=== PATIENT | male | born 1965 | race Caucasian/White ===

== ENCOUNTER 2017-07-30 06:45 | Observation (INO) | payer MEDICAID ==
[~2017-07-30] VITALS: Ht 162.6 cm; Wt 86.0 kg
[2017-07-30] MEDS ORDERED: morphine 4 MG/ML VIAL IV STA (07:10)
[2017-07-30] MEDS ORDERED: SOD CHLORIDE 0.9% 500 ML IV STA (07:10)
[2017-07-30] MEDS ORDERED: ONDANSETRON 4 MG INJ IV STA (07:10)
--- NOTE | 2017-07-30 07:13 | ERD ---
ER Documentation Chief Complaint Date/Time DATE: 07/30/17 TIME: 07:11 Chief Complaint Complains of abdominal pain with vomiting that radiates to the back HPI Patient is a 52-year-old male who presents with sudden onset, constant, moderate epigastric and right upper quadrant pain radiating to the right flank for 2 days. He states that the pain began after eating a fish taco. He reports one episode of vomiting yesterday. He reports constipation. His last bowel movement was yesterday. He reports having mild subjective fever yesterday morning. He denies chest pain, shortness of breath. ROS All systems reviewed and are negative except as per history of present illness. Medications Home Meds No Active Prescriptions or Reported Meds Allergies Allergies: Coded Allergies: No Known Allergy (Unverified , 07/30/17) PMhx/Soc Past medical history: None Past surgical history: Anal surgery Social history: Drinks occasional alcohol, no recent heavy alcohol use. No tobacco or illicit drugs. FmHx Family History: No coronary disease, No diabetes Physical Exam Vitals Vital Signs Date Time Temp Pulse Resp B/P Pulse Ox O2 Delivery O2 Flow Rate FiO2 07/30/17 06:48 98.6 79 20 129/82 98 Physical Exam Const: Alert, no acute distress Head: Atraumatic Eyes: Normal Conjunctiva, No pallor, no icterus ENT: Normal External Ears, Nose and Mouth. Mucous membranes moist Neck: Full range of motion..~ No meningismus. Resp: Clear to auscultation bilaterally, No wheezes, no rales Cardio: Regular rate and rhythm, no murmurs Abd: Soft, Mild distention, tenderness in the epigastrium and right upper quadrant without rebound. No lower abdominal tenderness. Skin: No petechiae or rashes Back: No midline or flank tenderness, No CVA tenderness Ext: No cyanosis, or edema Neur: Awake and alert Psych: Normal Mood and Affect Result Diagram: 07/30/1715 07/30/17714 Results 24 hrs Laboratory Tests Test 07/30/17 07:15 07/30/17 08:55 White Blood Count 19.710^3/ul Red Blood Count 5.5010^6/ul Hemoglobin 16.7g/dl Hematocrit 47.0% Mean Corpuscular Volume 85.5fl Mean Corpuscular Hemoglobin 30.4pg Mean Corpuscular Hemoglobin Concent 35.5g/dl Red Cell Distribution Width 14.1% Platelet Count 49679^3/UL Mean Platelet Volume 10.8fl Neutrophils % 84.1% Lymphocytes % 8.9% Monocytes % 5.4% Eosinophils % 0.7% Basophils % 0.3% Nucleated Red Blood Cells % 0.0/100WBC Neutrophils # 16.510^3/ul Lymphocytes # 1.810^3/ul Monocytes # 1.110^3/ul Eosinophils # 0.110^3/ul Basophils # 0.110^3/ul Nucleated Red Blood Cells # 0.010^3/ul Sodium Level 137mmol/L Potassium Level 3.9mmol/L Chloride Level 107mmol/L Carbon Dioxide Level 23mmol/L Anion Gap 11 Blood Urea Nitrogen 16mg/dl Creatinine 0.83mg/dl Glucose Level 131mg/dl Calcium Level 8.9mg/dl Total Bilirubin 1.1mg/dl Direct Bilirubin 0.00mg/dl Indirect Bilirubin 1.1mg/dl Aspartate Amino Transf (AST/SGOT) 40IU/L Alanine Aminotransferase (ALT/SGPT) 41IU/L Alkaline Phosphatase 112IU/L Total Protein 8.0g/dl Albumin 3.8g/dl Globulin 4.20g/dl Albumin/Globulin Ratio 0.90 Lipase 355U/L Urine Color YELLOW Urine Clarity CLEAR Urine pH 5.0 Urine Specific [place] 1.023 Urine Ketones NEGATIVEmg/dL Urine Nitrite NEGATIVEmg/dL Urine Bilirubin NEGATIVEmg/dL Urine Urobilinogen 1+mg/dL Urine Leukocyte Esterase NEGATIVELeu/ul Urine Hemoglobin NEGATIVEmg/dL Urine Glucose NEGATIVEmg/dL Urine Total Protein NEGATIVEmg/dl Current Medications Medications (Trade) Dose Ordered Sig/Chu Route PRN Reason Start Time Stop Time Status Last Admin Dose Admin Sodium Chloride (NS) 500 ml @ 500 mls/hr Q1H STAT IV 07/30/17 07:10 07/30/17 08:09 DC 07/30/17 07:26 Morphine Sulfate (morphine) 4 mg ONCE STAT IV 07/30/17 07:10 07/30/17 07:11 DC 07/30/17 07:26 Ondansetron HCl (Zofran Inj) 4 mg ONCE STAT IV 07/30/17 07:10 07/30/17 07:11 DC 07/30/17 07:26 IV Flush 10 ml 10 ml STK-MED ONCE .ROUTE 07/30/17 09:31 07/30/17 09:32 DC Sodium Chloride (NS) 100 ml @ ud STK-MED ONCE .ROUTE 07/30/17 09:31 07/30/17 09:32 DC Iohexol (Omnipaque 300mg/ ml) 150 ml STK-MED ONCE .ROUTE 07/30/17 09:31 07/30/17 09:32 DC Procedures/MDM EKG read by me: Time 716, rate 72 Rhythm: Normal sinus [place]: Normal Intervals: Normal ST-T waves: no ischemic changes Ectopy: No Q-waves: No Impression: No evidence of ischemia or arrhythmia MDM: Patient is a 52-year-old male who presents with acute epigastric and right upper quadrant pain. He has had a few episodes of vomiting. He is found to have pancreatitis on CT scan and has significant leukocytosis. There are no signs of sepsis. He is found to have cholelithiasis without evidence for choledocholithiasis or cholecystitis. There is no report of recent alcohol use or identifiable medications that would account for his acute pancreatitis. His lipase is not 3 times the upper limit of normal, but CT does show signs of pancreatitis. I cannot exclude the possibility of gallstone pancreatitis which may be transient. Given risk for worsening or recurrence in the patient's ongoing pain and leukocytosis, I will admit the patient for observation and possible surgical consult. Departure Diagnosis: Primary Impression: Pancreatitis Chronicity: acute Pancreatitis type: unspecified pancreatitis type Acute pancreatitis complication: no infection or necrosis Qualified Code: K85.90 - Acute pancreatitis without infection or necrosis, unspecified pancreatitis type Additional Impression: Cholelithiasis Cholelithiasis location: gallbladder Cholecystitis presence: without cholecystitis Biliary obstruction: without biliary obstruction Qualified Code : K80.20 - Calculus of gallbladder without cholecystitis without obstruction Condition: JULISA Ryan MD Jul 30, 2017 07:13
[2017-07-30 07:44] LABS: BASOPHIL # 0.1 10^3/ul (0.0-0.1); BASOPHILS % 0.3 % (0.0-2.0); EOSINOPHILS # 0.1 10^3/ul (0.0-0.5); EOSINOPHILS % 0.7 % (0.0-7.0); HEMOGLOBIN 16.7 g/dl (14.0-18.0); LYMPHOCYTES # 1.8 10^3/ul (0.8-2.9); LYMPHOCYTES % 8.9 % (15.0-51.0); MEAN CORPUSCULAR HEMOGLOBIN 30.4 pg (29.0-33.0); MEAN CORPUSCULAR HGB CONC 35.5 g/dl (32.0-37.0); MEAN CORPUSCULAR VOLUME 85.5 fl (82.0-101.0); MEAN PLATELET VOLUME 10.8 fl (7.4-10.4); MONOCYTE # 1.1 10^3/ul (0.3-0.9); MONOCYTES % 5.4 % (0.0-11.0); NEUTROPHIL # 16.5 10^3/ul (1.6-7.5); NEUTROPHILS % 84.1 % (39.0-77.0); PLATELET COUNT 308 10^3/UL (140-415); RED CELL DISTRIBUTION WIDTH 14.1 % (11.5-14.5); WHITE BLOOD COUNT 19.7 10^3/ul (4.8-10.8)
[2017-07-30 08:25] LABS: ALBUMIN 3.8 g/dl (3.3-4.9); ALBUMIN/GLOBULIN RATIO 0.9; BILIRUBIN,INDIRECT 1.1 mg/dl (0-1.1); BILIRUBIN,TOTAL 1.1 mg/dl (0.2-1.3); CALCIUM 8.9 mg/dl (8.4-10.2); CREATININE 0.83 mg/dl (0.61-1.24); POTASSIUM 3.9 mmol/L (3.5-5.1)
--- NOTE | 2017-07-30 08:46 | RADRPT ---
PROCEDURE: US Abdomen. CLINICAL INDICATION: abdominal pain TECHNIQUE: Multiple real-time images were acquired of the patient's right upper quadrant abdomen a nd retroperitoneum utilizing a high resolution transducer. COMPARISON: None FINDINGS: The liver demonstrates increased echogenicity. The liver is normal in size and no focal solid lesio ns are seen. The liver measures 18.1 cm in length. The portal vein is patent with normal direction o f flow. No intrahepatic biliary dilatation is seen. Multiple small calcified gallstones are identified within the gallbladder. There is no pericholecys tic fluid or gallbladder wall thickening. The common bile duct measures 5 mm in maximal dimension. The pancreas is not well seen due to overlying bowel gas. No free fluid is identified. The right kidney is normal in size, and demonstrate normal echogenicity and cortical thickness. The right kidney measures 10.2 cm in long dimension. There is no evidence of hydronephrosis. There are no kidney stones. The proximal IVC and aorta were not seen due to overlying bowel gas. RPTAT: AA IMPRESSION: Cholelithiasis. Fatty infiltration of the liver. .Ashutosh Mendenhall MD, MD Date Time Electronically viewed and signed by .Ashutosh Mendenhall MD, on 07/30/2017 08:46 .S/
[2017-07-30 09:12] LABS: ADD UMIC NO; UR ASCORBIC ACID NEGATIVE (NEGATIVE); UR BILIRUBIN (Dip) NEGATIVE (NEGATIVE); UR BLOOD (Dip) NEGATIVE (NEGATIVE); UR CLARITY CLEAR (CLEAR); UR COLOR YELLOW (YELLOW); UR GLUCOSE (Dip) NEGATIVE (NEGATIVE); UR KETONES (Dip) NEGATIVE (NEGATIVE); UR LEUKOCYTE ESTERASE (Dip) NEGATIVE Leu/ul (NEGATIVE); UR NITRITE (Dip) NEGATIVE (NEGATIVE); UR SPECIFIC GRAVITY (Dip) 1.023 (1.003-1.030); UR TOTAL PROTEIN (Dip) NEGATIVE (NEGATIVE); UR UROBILINOGEN (Dip) 1+ mg/dL (NEGATIVE)
--- NOTE | 2017-07-30 09:25 | RADRPT ---
PROCEDURE: ABDOMINAL RADIOGRAPH CLINICAL INDICATION: Abdominal pain. TECHNIQUE: AP abdomen x-ray. COMPARISON: None. FINDINGS: The bowel gas pattern is normal. There is no evidence of obstruction. There are no abnormal calcific ations overlying the urinary tracts. The osseus structures are unremarkable. IMPRESSION: Unremarkable abdomen radiograph. RPTAT: HMZ .Onel León MD, MD Date Time Electronically viewed and signed by .Onel León MD, on 07/30/2017 09:25 .Z/
[2017-07-30] MEDS ORDERED: SOD CHLORIDE 0.9% 100 ML ONE (09:31)
[2017-07-30] MEDS ORDERED: IOHEXOL 300MG/ML 150 ML BTL ONE (09:31)
--- NOTE | 2017-07-30 09:57 | RADRPT ---
PROCEDURE: CT Abdomen and Pelvis with contrast. CLINICAL INDICATION: Abdominal pain. TECHNIQUE: CT scan of the abdomen and pelvis with and without contrast was performed on a multidet perri high-resolution CT scanner. The patient was scanned following the uncomplicated intravenous a dministration of 100 cc of Omnipaque 300. Coronal and sagittal reformatted images were obtained fro m the axial source images. Images were reviewed on a high-resolution PACS workstation. The followin g dose reduction techniques were used: Automated exposure control, adjustment of the mA and/or kV ac cording to patient size and use of iterative reconstruction technique. The total exam CTDI equals 17 .0 mGy and the total exam DLP equals 1100 mGy-cm. COMPARISON: None. FINDINGS: CT abdomen: There is minimal bibasilar atelectasis. The heart size is normal. No pericardial effusion identified. The liver demonstrates normal size and density. No liver mass identified. The gallbladder is unremarkable. There is no intrahepatic or extrahepatic biliary dilatation. The spleen is normal in size. No focal splenic abnormality identified. No gross abnormality of the stomach is identified. There is inflammatory change around the head and body of the pancreas suggesting pancreatitis. The adrenal glands appear normal. Benign-appearing bilateral renal cysts measure up to 0.2 cm on the left and 0.8 cm on the right. The kidneys are unremarkable. There is no evidence of renal mass, renal calculi or hydronephrosis. The aorta is of normal caliber. No adenopathy identified. The bowel and mesentery are unremarkable. The appendix is visualized and appears normal. CT pelvis: The pelvic organs are normal. The pelvic sidewalls and inguinal regions are clear. The sigmoid colon and rectum are unremarkable. No adenopathy, free fluid or inflammatory change identified. The osseous structures are remarkable for mild degenerative spondylosis of the spine. No osteolytic or osteoblastic lesion is detected. There is a 2.5 cm fat containing right inguinal hernia. IMPRESSION: 1. Inflammatory change around the head and body of pancreas suggesting pancreatitis. No evidence of free fluid or abscess. 2. Benign-appearing bilateral renal cysts measuring up to 2.2 cm. 3. 2.5 cm fat containing right inguinal hernia. RPTAT: QQ .Maury Esquivel MD, MD Date Time Electronically viewed and signed by .Maury Esquievl MD, on 07/30/2017 09:57 .M/
[2017-07-30] MEDS ORDERED: ONDANSETRON 4 MG INJ IV PRN ×2 (13:00→14:00)
[2017-07-30] MEDS ORDERED: ACETAMINOPHEN 325 MG TAB PO PRN (13:00)
[2017-07-30] MEDS ORDERED: NACL 0.9% 3 ML SYG IV SCH (14:00)
[2017-07-30] MEDS ORDERED: HYDROmorphONE 1 MG/ML SYG IV PRN (14:00)
[2017-07-30 14:17] VITALS: BP 110/76; RESP 18
--- NOTE | 2017-07-30 14:17 | HP ---
Date/Time of Note Date/Time of Note DATE: 07/30/17 TIME: 13:47 Assessment/Plan VTE Prophylaxis VTE Prophylaxis Intervention: SCD's Assessment/Plan Assessment/Plan 1. Acute pancreatitis - Seen on CT scan of abdomen showed inflammatory change around the head and body of pancreas suggesting pancreatitis. No evidence of free fluid or abscess - Lipase 355 - Will keep NPO and pain control with Morphine. IVF NSS - MRCP ordered to rule out choledocholithiasis as cause of pancreatitis - Will check lipid panel - GI consulted and awaiting recommendations - Will consult Surgery for evaluation as well. - Will start on Cipro/Flayl for now given WBC are 19K 2. Leukocytosis secondary to #1 - will continue to monitor 3. Diet - NPO 4. GI ppx - Pepcid 5. DVT ppx - SCD since ambulating 6. Code status - Full code 7. Disposition - Will admit to med/surg >35 minutes was spent with patient at time of admission. All labs and imaging reviewed personally. All questions answered. HPI/ROS Admit Date/Time Admit Date/Time 07/30/17 Hx of Present Illness 52 yo M with no significant PMH presents to ED c/o worsening abdominal pain that radiates to the back since Monday. Patient states he was eating fish tacos when the abdominal pain began. States pain is 8/10, epigastric area radiating to back and bilateral lower quadrants, nothing makes it better, and worse with eating. Patient states he was experiencing nausea with one episode of vomiting yesterday but has since resolved. He has only been able to tolerate water over the past day prior to coming to ED. Patient states he does experiencing some shortness of breath due to the back pain and abdominal pain. Denies any fevers, chills, headache, dizziness, palpitations,constipation or diarrhea. Denies any excessive alcohol use. ROS All 13 systems reviewed and pertinent positives as per HPI. All others reviewed and negative Constitutional: nausea, No chills, No diaphoresis, No fatigue, No febrile Eyes: no complaints ENT: no complaints, No discharge, No sore throat Respiratory: shortness of breath, No cough, No sputum, No wheezing Cardiovascular: No chest pain, No edema, No lightheadedness, No palpitations Gastrointestinal: nausea, pain (epigastric radiating to back), vomiting, No constipation, No diarrhea Genitourinary: no complaints Musculoskeletal: back pain Skin: no complaints Neurologic: no complaints Endocrine: no complaints Lymphatic: no complaints Psychological: no complaints Immunologic: no complaints PMH/Family/Social Past Medical History Medical History: no pertinent history Past Surgical History Past Surgical Hx: no surgical history Family History Significant Family History: no pertinent family hx Social History Alcohol Use: none Smoking Status: Never smoker Drug Use: none Exam/Review of Systems Vital Signs Vitals Vital Signs Date Time Temp Pulse Resp B/P Pulse Ox O2 Delivery O2 Flow Rate FiO2 07/30/17 06:48 98.6 79 20 129/82 98 Exam Constitutional: alert, oriented, well developed, No distress Psych: nl mood/affect Head: atraumatic, normocephalic Eyes: EOMI, PERRL ENMT: nl external ears & nose, nl lips & teeth Neck: non-tender, supple Respiratory: clear to auscultation, No crackles/rales, No diminished breath sounds, No wheezing Cardiovascular: regular rate and rhythm, No murmurs/extra sounds, No systolic murmur Gastrointestinal: nl liver, spleen, soft, No distended, No rebound or guarding, No tender Musculoskeletal: nl extremities to inspection Extremities: normal pulses, No cyanosis, No edema Neurological: [employer] II-XII intact, nl mental status Skin: nl turgor Lymph: nl lymph nodes Labs Result Diagram: 07/30/1771407/30/17714 Medications Medications No home medications. Procedures Procedures PROCEDURE: CT Abdomen and Pelvis with contrast. CLINICAL INDICATION: Abdominal pain. TECHNIQUE: CT scan of the abdomen and pelvis with and without contrast was performed on a multidetector high-resolution CT scanner. The patient was scanned following the uncomplicated intravenous administration of 100 cc of Omnipaque 300. Coronal and sagittal reformatted images were obtained from the axial source images. Images were reviewed on a high-resolution PACS workstation. The following dose reduction techniques were used: Automated exposure control, adjustment of the mA and/or kV according to patient size and use of iterative reconstruction technique. The total exam CTDI equals 17.0 mGy and the total exam DLP equals 1100 mGy-cm. COMPARISON: None. FINDINGS: CT abdomen: There is minimal bibasilar atelectasis. The heart size is normal. No pericardial effusion identified. The liver demonstrates normal size and density. No liver mass identified. The gallbladder is unremarkable. There is no intrahepatic or extrahepatic biliary dilatation. The spleen is normal in size. No focal splenic abnormality identified. No gross abnormality of the stomach is identified. There is inflammatory change around the head and body of the pancreas suggesting pancreatitis. The adrenal glands appear normal. Benign-appearing bilateral renal cysts measure up to 0.2 cm on the left and 0.8 cm on the right. The kidneys are unremarkable. There is no evidence of renal mass, renal calculi or hydronephrosis. The aorta is of normal caliber. No adenopathy identified. The bowel and mesentery are unremarkable. The appendix is visualized and appears normal. CT pelvis: The pelvic organs are normal. The pelvic sidewalls and inguinal regions are clear. The sigmoid colon and rectum are unremarkable. No adenopathy, free fluid or inflammatory change identified. The osseous structures are remarkable for mild degenerative spondylosis of the spine. No osteolytic or osteoblastic lesion is detected. There is a 2.5 cm fat containing right inguinal hernia. IMPRESSION: 1. Inflammatory change around the head and body of pancreas suggesting pancreatitis. No evidence of free fluid or abscess. 2. Benign-appearing bilateral renal cysts measuring up to 2.2 cm. 3. 2.5 cm fat containing right inguinal hernia. PROCEDURE: ABDOMINAL RADIOGRAPH CLINICAL INDICATION: Abdominal pain. TECHNIQUE: AP abdomen x-ray. COMPARISON: None. FINDINGS: The bowel gas pattern is normal. There is no evidence of obstruction. There are no abnormal calcifications overlying the urinary tracts. The osseus structures are unremarkable. IMPRESSION: Unremarkable abdomen radiograph. PROCEDURE: US Abdomen. CLINICAL INDICATION: abdominal pain TECHNIQUE: Multiple real-time images were acquired of the patient's right upper quadrant abdomen and retroperitoneum utilizing a high resolution transducer. COMPARISON: None FINDINGS: The liver demonstrates increased echogenicity. The liver is normal in size and no focal solid lesions are seen. The liver measures 18.1 cm in length. The portal vein is patent with normal direction of flow. No intrahepatic biliary dilatation is seen. Multiple small calcified gallstones are identified within the gallbladder. There is no pericholecystic fluid or gallbladder wall thickening. The common bile duct measures 5 mm in maximal dimension. The pancreas is not well seen due to overlying bowel gas. No free fluid is identified. The right kidney is normal in size, and demonstrate normal echogenicity and cortical thickness. The right kidney measures 10.2 cm in long dimension. There is no evidence of hydronephrosis. There are no kidney stones. The proximal IVC and aorta were not seen due to overlying bowel gas. RPTAT: AA IMPRESSION: Cholelithiasis. Fatty infiltration of the liver. JERICA OVERTON MD Jul 30, 2017 13:58
[2017-07-30] MEDS: morphine 2 MG INJ IV PRN (14:37)
[2017-07-30] MEDS: SOD CHLORIDE 0.9% 1,000 ML IV SCH ×2 (14:40→23:36)
[2017-07-30] MEDS: CIPROFLOXACIN 400MG/D5W 200 ML IVPB SCH ×2 (14:42→20:36)
[2017-07-30 15:47] VITALS: Ht 162.6 cm; Wt 86.0 kg
--- NOTE | 2017-07-30 16:10 | CONS ---
Date/Time of Note Date/Time of Note DATE: 07/30/17 TIME: 16:03 Assessment/Plan Assessment/Plan Additional Assessment/Plan Assessment: Acute pancreatitis/etiology unclear No history of alcohol abuse Cholelithiasis/normal common bile duct/normal liver function tests Morbid obesity History of anorectal fistula repaired surgically many years ago Plan: Continue present management with n.p.o., pain management, antibiotics MRI/MRCP to further rule out choledocholithiasis Consider elective cholecystectomy Weight loss program Consultation Date/Type/Reason Admit Date/Time 07/30/17 Date of Consultation: Jul 30, 2017 Type of Consultation: GI Reason for Consultation Pancreatitis Hx of Present Illness 42-year-old male presents to emergency room with 3 days of persistent abdominal pain epigastric radiating towards the back, severe enough to interfere with his daily diet. Associated with nausea and vomiting. No overt gastrointestinal bleeding. No fever, chills or diaphoresis. The patient has never had pain like this before. Upon evaluation in the emergency room he is noticed to have an elevated lipase and imaging shows cholelithiasis with normal common bile duct. The patient denies alcohol intake with the exception of major holidays such as Rg and even then in small amounts. He has never had previous episodes of gastrointestinal disease with the exception of rectal fistula that was treated surgically many years prior. The patient has not had screening colonoscopy is recommended at age 48. At this point the patient is comfortable after receiving opiate pain management. Review of Systems: Gastrointestinal and liver: [As noted in HPI] [positive for: Abdominal pain] [ Negative for: Anorexia, dysphagia, odynophagia, pyrosis, regurgitation, nausea, vomiting, early satiety, bloating, food intolerance, diarrhea, constipation, change in bowel habits, laxative use, hematemesis, melena, hematochezia, and rectal symptoms, incontinence, jaundice.] Eyes: no complaints ENT: no complaints, No discharge, No sore throat Respiratory: shortness of breath, No cough, No sputum, No wheezing Cardiovascular: No chest pain, No edema, No lightheadedness, No palpitations Genitourinary: no complaints Musculoskeletal: back pain Skin: no complaints Neurologic: no complaints Lymphatic: no complaints Psychological: nl mood/affect Immunologic: no complaints Past Medical History Medical History: no pertinent history, other Past Surgical History Past Surgical Hx: other (And a rectal fistula treated surgically many years prior) Family History Significant Family History: no pertinent family hx Social History Alcohol Use: occasionally Smoking Status: Never smoker Drug Use: none Exam/Review of Systems Vital Signs Vitals Vital Signs Date Time Temp Pulse Resp B/P Pulse Ox O2 Delivery O2 Flow Rate FiO2 07/30/17 14:17 98.9 80 18 110/76 100 Exam PHYSICAL EXAMINATION: GENERAL: Well developed, well nourished, morbidly obese, alert & oriented x 3, in no acute distress SKIN: No lesions, no stigmata chronic liver disease, no evidence of bleeding diathesis LYMPHATIC: No palpable lymphadenopathy. HEAD: Normocephalic, atraumatic, no tenderness. EYES: Pupils equal reactive to light and accommodation, full extraocular movements, sclera clear, non-icteric, no discharge. EARS/NOSE AND THROAT: Ears normal, nose normal, oropharynx normal, oral membranes well hydrated without lesions. NECK: Supple, no masses, thyroid normal, JVP within normal limits, carotids normal without bruits. CHEST: Inspection within normal limits. CARDIOVASCULAR: Heart: Regular rate and rhythm, no murmurs, gallops or rubs. Peripheral pulses present within normal limits, no cyanosis, clubbing or edemas. No pulsatile abdominal mass RESPIRATORY: Lungs clear to auscultation and percussion, no wheezing, no rubs GASTROINTESTINAL AND LIVER: Abdomen: Soft, moderate epigastric tenderness, moderately distended, no hernias, no masses, no organomegaly, no ascites, no guarding, no rebound tenderness, normoactive bowel sounds. Rectal: Deferred. GENITOURINARY: [Male genitalia within normal limits.] EXTREMITIES: No cyanosis, clubbing or edema. Results Result Diagram: 07/30/17 0715 07/30/17 0715 Results 24 hrs Laboratory Tests Test 07/30/17 07:15 07/30/17 08:55 White Blood Count 19.7 H Red Blood Count 5.50 Hemoglobin 16.7 Hematocrit 47.0 Mean Corpuscular Volume 85.5 Mean Corpuscular Hemoglobin 30.4 Mean Corpuscular Hemoglobin Concent 35.5 Red Cell Distribution Width 14.1 Platelet Count 308 Mean Platelet Volume 10.8 H Neutrophils % 84.1 H Lymphocytes % 8.9 L Monocytes % 5.4 Eosinophils % 0.7 Basophils % 0.3 Nucleated Red Blood Cells % 0.0 Neutrophils # 16.5 H Lymphocytes # 1.8 Monocytes # 1.1 H Eosinophils # 0.1 Basophils # 0.1 Nucleated Red Blood Cells # 0.0 Sodium Level 137 Potassium Level 3.9 Chloride Level 107 Carbon Dioxide Level 23 Anion Gap 11 Blood Urea Nitrogen 16 Creatinine 0.83 Glucose Level 131 Calcium Level 8.9 Total Bilirubin 1.1 Direct Bilirubin 0.00 Indirect Bilirubin 1.1 Aspartate Amino Transf (AST/SGOT) 40 Alanine Aminotransferase (ALT/SGPT) 41 Alkaline Phosphatase 112 Total Protein 8.0 Albumin 3.8 Globulin 4.20 H Albumin/Globulin Ratio 0.90 Lipase 355 H Urine Color YELLOW Urine Clarity CLEAR Urine pH 5.0 Urine Specific [place] 1.023 Urine Ketones NEGATIVE Urine Nitrite NEGATIVE Urine Bilirubin NEGATIVE Urine Urobilinogen 1+ H Urine Leukocyte Esterase NEGATIVE Urine Hemoglobin NEGATIVE Urine Glucose NEGATIVE Urine Total Protein NEGATIVE Medications Medications Current Medications Sodium Chloride (NS) 1,000 ml @ 100 mls/hr Q10H IV Last administered on 14:40; Admin Dose 100 MLS/HR; Start 07/30/17 at 13:36 Ondansetron HCl (Zofran Inj) 4 mg Q6H PRN IV NAUSEA AND/OR VOMITING; Start 07/30/17 at 14:00 Morphine Sulfate (morphine) 2 mg Q4H PRN IV SEVERE PAIN LEVEL 7-10 Last administered on 07/30/17 14:37; Admin Dose 2 MG; Start 07/30/17 at 14:00 Hydromorphone HCl (Dilaudid) 0.5 mg Q4H PRN IV SEVERE PAIN LEVEL 7-10; Start 07/30/17 at 14:00 Famotidine 20 mg 20 mg Q12 IV ; Start 07/30/17 at 15:30 Metronidazole 100 ml @ 100 mls/hr Q8 IVPB ; Start 07/30/17 at 14:30 Ciprofloxacin/ Dextrose (Cipro Ivpb) 200 ml @ 200 mls/hr Q12 IVPB Last administered on 07/30/17 14:42; Admin Dose 200 MLS/HR; Start 07/30/17 at 14:30 Copies To: CC: RADHA GAY MD, MORDO MD Jul 30, 2017 16:10
[2017-07-30] MEDS: FAMOTIDINE 20 MG INJ IV SCH ×2 (16:22→20:35)
[2017-07-30] MEDS: metroNIDAZOLE 500 MG/NS (PMX) 100 ML IVPB SCH ×2 (16:22→22:13)
--- NOTE | 2017-07-30 16:29 | CONS ---
Date/Time of Note Date/Time of Note DATE: 07/30/17 TIME: 16:27 Assessment/Plan Assessment/Plan Chief Complaint/Hosp Course 1. Pancreatitis likely 2/2 gallstones - patient denies heavy drinking -npo -ivf -abx -pain management 2. Cholelithiasis without cholecystitis: -eventual lap marjan -MRCP/ERCP per gi 3. Leukocytosis: 2/2 #1; no fevers -as above 4. Right inguinal hernia; reducible, no pain -eventual repair can be done outpatient -close monitoring -weight reduction 5. Hepatic steatosis -weight loss encouraged -medical management and follow up outpatient 6. Severe obesity: -weight loss highly encouraged -diet and exercise optimization Thank you. Patient seen and examined in collaboration with Dr. Sergio Unger. Problems: Consultation Date/Type/Reason Admit Date/Time 07/30/17 Date of Consultation: Jul 30, 2017 Type of Consultation: Surgical Reason for Consultation pancreatitis Referring Provider: JERICA OVERTON MD Hx of Present Illness Chase Carias is a 52 yo man who presents to the ED with a 3 day complaint of abdominal pain described as squeezing and hard. Pain radiates to his back. Associated symptoms include a one time episode of vomiting, nonbloody emesis, as well as chills, He denies fevers, nausea with further vomiting, diarrhea, dysuria, chest pain, palpitations. CT abdomen showed radiologic evidence of pancreatitis. Ultrasound also showed cholelithiasis. General surgery consult was asked to evaluate. Eyes: no complaints ENT: no complaints, No discharge, No sore throat Respiratory: shortness of breath, No cough, No sputum, No wheezing Cardiovascular: No chest pain, No edema, No lightheadedness, No palpitations Genitourinary: no complaints Musculoskeletal: back pain Skin: no complaints Neurologic: no complaints Lymphatic: no complaints Psychological: nl mood/affect Immunologic: no complaints Past Medical History fatty liver right inguinal hernia severe obesity Medical History: other Past Surgical History rectal surgery Past Surgical Hx: other (And a rectal fistula treated surgically many years prior) Family History Significant Family History: no pertinent family hx Social History Alcohol Use: occasionally Smoking Status: Never smoker Drug Use: none Exam/Review of Systems Vital Signs Vitals Vital Signs Date Time Temp Pulse Resp B/P Pulse Ox O2 Delivery O2 Flow Rate FiO2 07/30/17 14:17 98.9 80 18 110/76 100 Exam Constitutional: alert, oriented Psych: nl mood/affect Head: atraumatic, normocephalic Eyes: nl lids, nl sclera ENMT: mucosa pink and moist, nl nasal mucosa & septum Neck: non-tender, supple Respiratory: clear to auscultation, normal air movement Cardiovascular: regular rate and rhythm Gastrointestinal: distended (min), soft, tender (min) Genitourinary - Male: other (right inguinal hernia -reducible no pain) Musculoskeletal: nl extremities to inspection, nl gait and stance Extremities: normal pulses Neurological: nl mental status, nl speech, nl strength Skin: rash or lesions Lymph: nl lymph nodes Results Result Diagram: 07/30/1715 07/30/17714 Results 24 hrs Laboratory Tests Test 07/30/17 07:15 07/30/17 08:55 White Blood Count 19.7 H Red Blood Count 5.50 Hemoglobin 16.7 Hematocrit 47.0 Mean Corpuscular Volume 85.5 Mean Corpuscular Hemoglobin 30.4 Mean Corpuscular Hemoglobin Concent 35.5 Red Cell Distribution Width 14.1 Platelet Count 308 Mean Platelet Volume 10.8 H Neutrophils % 84.1 H Lymphocytes % 8.9 L Monocytes % 5.4 Eosinophils % 0.7 Basophils % 0.3 Nucleated Red Blood Cells % 0.0 Neutrophils # 16.5 H Lymphocytes # 1.8 Monocytes # 1.1 H Eosinophils # 0.1 Basophils # 0.1 Nucleated Red Blood Cells # 0.0 Sodium Level 137 Potassium Level 3.9 Chloride Level 107 Carbon Dioxide Level 23 Anion Gap 11 Blood Urea Nitrogen 16 Creatinine 0.83 Glucose Level 131 Calcium Level 8.9 Total Bilirubin 1.1 Direct Bilirubin 0.00 Indirect Bilirubin 1.1 Aspartate Amino Transf (AST/SGOT) 40 Alanine Aminotransferase (ALT/SGPT) 41 Alkaline Phosphatase 112 Total Protein 8.0 Albumin 3.8 Globulin 4.20 H Albumin/Globulin Ratio 0.90 Lipase 355 H Urine Color YELLOW Urine Clarity CLEAR Urine pH 5.0 Urine Specific [place] 1.023 Urine Ketones NEGATIVE Urine Nitrite NEGATIVE Urine Bilirubin NEGATIVE Urine Urobilinogen 1+ H Urine Leukocyte Esterase NEGATIVE Urine Hemoglobin NEGATIVE Urine Glucose NEGATIVE Urine Total Protein NEGATIVE Medications Medications Current Medications Sodium Chloride (NS) 1,000 ml @ 100 mls/hr Q10H IV Last administered on 14:40; Admin Dose 100 MLS/HR; Start 07/30/17 at 13:36 Ondansetron HCl (Zofran Inj) 4 mg Q6H PRN IV NAUSEA AND/OR VOMITING; Start 07/30/17 at 14:00 Morphine Sulfate (morphine) 2 mg Q4H PRN IV SEVERE PAIN LEVEL 7-10 Last administered on 07/30/17 14:37; Admin Dose 2 MG; Start 07/30/17 at 14:00 Hydromorphone HCl (Dilaudid) 0.5 mg Q4H PRN IV SEVERE PAIN LEVEL 7-10; Start 07/30/17 at 14:00 Famotidine 20 mg 20 mg Q12 IV Last administered on 07/30/17 16:22; Admin Dose 20 MG; Start 07/30/17 at 15:30 Metronidazole 100 ml @ 100 mls/hr Q8 IVPB Last administered on 07/30/17 16:22 ; Admin Dose 100 MLS/HR; Start 07/30/17 at 14:30 Ciprofloxacin/ Dextrose (Cipro Ivpb) 200 ml @ 200 mls/hr Q12 IVPB Last administered on 07/30/17 14:42; Admin Dose 200 MLS/HR; Start 07/30/17 at 14:30 SUSIE AHUMADA NP Jul 30, 2017 16:29
[2017-07-30 20:00] VITALS: BP 107/68; RESP 17
[2017-07-31 02:00] VITALS: BP 107/65; RESP 19
[2017-07-31] MEDS: SOD CHLORIDE 0.9% 1,000 ML IV SCH ×2 (05:06→20:24)
[2017-07-31] MEDS: metroNIDAZOLE 500 MG/NS (PMX) 100 ML IVPB SCH ×3 (05:06→22:07)
[2017-07-31 06:38] LABS: BASOPHIL # 0.1 10^3/ul (0.0-0.1); BASOPHILS % 0.4 % (0.0-2.0); EOSINOPHILS # 0.2 10^3/ul (0.0-0.5); EOSINOPHILS % 1.1 % (0.0-7.0); HEMOGLOBIN 15.2 g/dl (14.0-18.0); LYMPHOCYTES # 1.5 10^3/ul (0.8-2.9); LYMPHOCYTES % 9.5 % (15.0-51.0); MEAN CORPUSCULAR HEMOGLOBIN 30.4 pg (29.0-33.0); MEAN CORPUSCULAR HGB CONC 35.3 g/dl (32.0-37.0); MEAN PLATELET VOLUME 10.9 fl (7.4-10.4); MONOCYTE # 1.1 10^3/ul (0.3-0.9); MONOCYTES % 7.1 % (0.0-11.0); NEUTROPHIL # 12.8 10^3/ul (1.6-7.5); NEUTROPHILS % 81.5 % (39.0-77.0); PLATELET COUNT 289 10^3/UL (140-415); WHITE BLOOD COUNT 15.8 10^3/ul (4.8-10.8)
[2017-07-31 07:03] LABS: ALBUMIN 3.2 g/dl (3.3-4.9); ALBUMIN/GLOBULIN RATIO 0.84; BILIRUBIN,INDIRECT 0.9 mg/dl (0-1.1); BILIRUBIN,TOTAL 0.9 mg/dl (0.2-1.3); CALCIUM 8.1 mg/dl (8.4-10.2); CHOL/HDL RATIO 4.1 RATIO; CREATININE 0.74 mg/dl (0.61-1.24); MAGNESIUM 1.9 mg/dl (1.7-2.5)
[2017-07-31 07:45] VITALS: BP 108/71; RESP 20
[2017-07-31] MEDS: FAMOTIDINE 20 MG INJ IV SCH ×2 (08:31→20:22)
[2017-07-31] MEDS: CIPROFLOXACIN 400MG/D5W 200 ML IVPB SCH ×2 (08:31→20:23)
[2017-07-31] MEDS ORDERED: INFLUENZA VIRUS VACCINE 0.5 ML (DISPENSING) IM* ONE (09:00)
[2017-07-31] MEDS: morphine 2 MG INJ IV PRN (12:06)
--- NOTE | 2017-07-31 12:18 | PN ---
Date/Time of Note Date/Time of Note DATE: 07/31/17 TIME: 12:14 Assessment/Plan Lines/Catheters IV Catheter Type (from [facility]): Peripheral IV Ryan in Place (from [facility]): No Assessment/Plan Chief Complaint/Hosp Course 1. Pancreatitis likely 2/2 gallstones - patient denies heavy drinking; lipase normalized -npo -ivf -abx -pain management 2. Cholelithiasis without cholecystitis: -eventual lap marjan -MRCP/ERCP per gi 3. Leukocytosis: 2/2 #1; no fevers; improving -as above 4. Right inguinal hernia; reducible, no pain -eventual repair can be done outpatient -close monitoring -weight reduction 5. Hepatic steatosis -weight loss encouraged -medical management and follow up outpatient 6. Severe obesity: -weight loss highly encouraged -diet and exercise optimization Thank you. Patient seen and examined in collaboration with Dr. Sergio Unger. Problems: Subjective 24 Hr Interval Summary Abdominal pain improved but continues to have back pain- improved with meds. Pending MRCP. Leukocytosis improving. No fevers, chills, sob, congested cough, n /v/d/dysuria. Lipase normalized. Exam/Review of Systems Vital Signs Vitals Vital Signs Date Time Temp Pulse Resp B/P Pulse Ox O2 Delivery O2 Flow Rate FiO2 07/31/17 07:45 99.1 71 20 108/71 97 Intake and Output 07/30/17 07/30/17 07/31/17 15:00 23:00 07:00 Intake Total 400 ml 1100 ml Output Total 500 ml Balance 400 ml 600 ml Exam Free Text/Dictation Constitutional: alert, oriented Psych: nl mood/affect Head: atraumatic, normocephalic Eyes: nl lids, nl sclera ENMT: mucosa pink and moist, nl nasal mucosa & septum Neck: non-tender, supple Respiratory: clear to auscultation, normal air movement Cardiovascular: regular rate and rhythm Gastrointestinal: distended (min), soft, min tender Genitourinary - Male: other (right inguinal hernia -reducible no pain) Musculoskeletal: nl extremities to inspection, nl gait and stance Extremities: normal pulses Neurological: nl mental status, nl speech, nl strength Skin: rash or lesions Lymph: nl lymph nodes Results Result Diagram: 07/31/1743 07/31/1743 SUSIE AHUMADA NP Jul 31, 2017 12:18
[2017-07-31 14:26] VITALS: BP 112/75; RESP 16
--- NOTE | 2017-07-31 14:58 | PN ---
Date/Time of Note Date/Time of Note DATE: 07/31/17 TIME: 14:57 Assessment/Plan VTE Prophylaxis VTE Prophylaxis Intervention: SCD's Lines/Catheters IV C[facility] Type [facility] Peripheral IV Urinary Cath still in place: No Assessment/Plan Chief Complaint/Hosp Course Assessment/Plan 1. Acute pancreatitis - Seen on CT scan of abdomen showed inflammatory change around the head and body of pancreas suggesting pancreatitis. No evidence of free fluid or abscess - Lipase lower today - Will keep NPO and pain control with Morphine. IVF NSS - MRCP ordered to rule out choledocholithiasis as cause of pancreatitis - Will check lipid panel - GI consulted and awaiting recommendations - Will consult Surgery for evaluation as well. - Will start on Cipro/Flayl for now given WBC are 19K 2. Leukocytosis secondary to #1 - will continue to monitor 3. Diet - NPO 4. GI ppx - Pepcid 5. DVT ppx - SCD since ambulating 6. Code status - Full code 7. Disposition -pending MRCP and resolution of pain. patient able to try clears after MRCP today Problems: Exam/Review of Systems Vital Signs Vitals Vital Signs Date Time Temp Pulse Resp B/P Pulse Ox O2 Delivery O2 Flow Rate FiO2 07/31/17 14:26 98.1 71 16 112/75 95 Intake and Output 07/30/17 07/30/17 07/31/17 15:00 23:00 07:00 Intake Total 400 ml 1100 ml Output Total 500 ml Balance 400 ml 600 ml Results Result Diagram: 07/31/17 0543 07/31/17 0543 Results 24 hrs Laboratory Tests Test 07/31/17 05:43 White Blood Count 15.8 H Red Blood Count 5.00 Hemoglobin 15.2 Hematocrit 43.0 Mean Corpuscular Volume 86.0 Mean Corpuscular Hemoglobin 30.4 Mean Corpuscular Hemoglobin Concent 35.3 Red Cell Distribution Width 14.0 Platelet Count 289 Mean Platelet Volume 10.9 H Neutrophils % 81.5 H Lymphocytes % 9.5 L Monocytes % 7.1 Eosinophils % 1.1 Basophils % 0.4 Nucleated Red Blood Cells % 0.0 Neutrophils # 12.8 H Lymphocytes # 1.5 Monocytes # 1.1 H Eosinophils # 0.2 Basophils # 0.1 Nucleated Red Blood Cells # 0.0 Sodium Level 133 L Potassium Level 4.0 Chloride Level 106 Carbon Dioxide Level 23 Anion Gap 8 Blood Urea Nitrogen 12 Creatinine 0.74 Glucose Level 94 Calcium Level 8.1 L Magnesium Level 1.9 Total Bilirubin 0.9 Direct Bilirubin 0.00 Indirect Bilirubin 0.9 Aspartate Amino Transf (AST/SGOT) 20 Alanine Aminotransferase (ALT/SGPT) 33 Alkaline Phosphatase 92 Total Protein 7.0 # Albumin 3.2 L Globulin 3.80 H Albumin/Globulin Ratio 0.84 Triglycerides Level 84 Cholesterol Level 151 LDL Cholesterol, Calculated 98 HDL Cholesterol 36 Cholesterol/HDL Ratio 4.1 Lipase 125 Medications Medications Current Medications Sodium Chloride (NS) 1,000 ml @ 100 mls/hr Q10H IV Last administered on 05:06; Admin Dose 100 MLS/HR; Start 07/30/17 at 13:36 Ondansetron HCl (Zofran Inj) 4 mg Q6H PRN IV NAUSEA AND/OR VOMITING; Start 07/30/17 at 14:00 Morphine Sulfate (morphine) 2 mg Q4H PRN IV SEVERE PAIN LEVEL 7-10 Last administered on 07/31/17 12:06; Admin Dose 2 MG; Start 07/30/17 at 14:00 Hydromorphone HCl (Dilaudid) 0.5 mg Q4H PRN IV SEVERE PAIN LEVEL 7-10; Start 07/30/17 at 14:00 Famotidine 20 mg 20 mg Q12 IV Last administered on 07/31/17 08:31; Admin Dose 20 MG; Start 07/30/17 at 15:30 Metronidazole 100 ml @ 100 mls/hr Q8 IVPB Last administered on 07/31/17 14:41 ; Admin Dose 100 MLS/HR; Start 07/30/17 at 14:30 Ciprofloxacin/ Dextrose (Cipro Ivpb) 200 ml @ 200 mls/hr Q12 IVPB Last administered on 07/31/17 08:31; Admin Dose 200 MLS/HR; Start 07/30/17 at 14:30 KAYLYN JONES Jul 31, 2017 14:58
[2017-07-31 20:47] VITALS: BP 112/71; RESP 21
--- NOTE | 2017-07-31 21:59 | RADRPT ---
PROCEDURE: MRCP. CLINICAL INDICATION: Elevated liver function tests. TECHNIQUE: MRCP was performed. The following sequences were obtained: Three plane gradient echo localizers, coronal gradient echo images, breath hold axial T2-weighted fat saturation images, seun nal T2-weighted images, axial 3-D LAVA images, axial T2-weighted breath hold fast spin echo images, and 3-D coronal rotating MIP images of the biliary tree. COMPARISON: CT scan of the abdomen and pelvis dated 07/30/2017 which demonstrated mild pancreatiti s, benign appearing bilateral renal cysts, and a fat containing right inguinal hernia. Right upper quadrant abdomen ultrasound dated 07/30/2017 which demonstrated small gallstones in the gallbladder. FINDINGS: The liver is normal in size. There is normal signal intensity within the liver. There is no focal hepatic lesion. The spleen is normal in size and homogeneous in signal intensity. There are several small gallstones in the gallbladder. There is no gallbladder wall thickening or fl uid around the gallbladder. The intrahepatic bile ducts and common bile duct appear normal with no filling defect or narrowing. There is no evidence of common bile duct stone or stricture. The pancreatic duct is grossly normal. There is mild mesenteric edema surrounding the head of the pa ncreas as seen on prior CT scan consistent with mild pancreatitis. There are benign bilateral renal cysts. The abdominal aorta is not dilated. IMPRESSION: 1. Normal gallbladder and bile ducts. 2. Mild pancreatitis. 3. Benign bilateral renal cysts. 4. Otherwise normal MRCP. RPTAT: QQ .Bryan Corado MD, Date Time Electronically viewed and signed by .Bryan Corado MD, MD on 07/31/2017 21:59 .R/
[2017-08-01 03:01] VITALS: BP 112/74; RESP 22
[2017-08-01] MEDS: metroNIDAZOLE 500 MG/NS (PMX) 100 ML IVPB SCH ×2 (05:21→14:00)
[2017-08-01] MEDS: SOD CHLORIDE 0.9% 1,000 ML IV SCH (05:21)
[2017-08-01 06:31] LABS: BASOPHIL # 0.1 10^3/ul (0.0-0.1); BASOPHILS % 0.4 % (0.0-2.0); EOSINOPHILS # 0.3 10^3/ul (0.0-0.5); EOSINOPHILS % 1.9 % (0.0-7.0); HEMATOCRIT 43.2 % (42.0-52.0); HEMOGLOBIN 15.2 g/dl (14.0-18.0); LYMPHOCYTES % 13.7 % (15.0-51.0); MEAN CORPUSCULAR HGB CONC 35.2 g/dl (32.0-37.0); MEAN CORPUSCULAR VOLUME 85.2 fl (82.0-101.0); MEAN PLATELET VOLUME 10.8 fl (7.4-10.4); MONOCYTE # 1.2 10^3/ul (0.3-0.9); MONOCYTES % 8.2 % (0.0-11.0); NEUTROPHIL # 10.7 10^3/ul (1.6-7.5); NEUTROPHILS % 75.3 % (39.0-77.0); PLATELET COUNT 301 10^3/UL (140-415); RED BLOOD COUNT 5.07 10^6/ul (4.70-6.10); RED CELL DISTRIBUTION WIDTH 13.5 % (11.5-14.5); WHITE BLOOD COUNT 14.2 10^3/ul (4.8-10.8)
[2017-08-01 06:57] LABS: CALCIUM 7.9 mg/dl (8.4-10.2); CREATININE 0.75 mg/dl (0.61-1.24); MAGNESIUM 2.1 mg/dl (1.7-2.5); PHOSPHORUS 2.6 mg/dl (2.5-4.9); POTASSIUM 3.9 mmol/L (3.5-5.1)
[2017-08-01 08:00] VITALS: BP 100/64; RESP 20
[2017-08-01] MEDS: FAMOTIDINE 20 MG INJ IV SCH (08:40)
[2017-08-01] MEDS: CIPROFLOXACIN 400MG/D5W 200 ML IVPB SCH (08:40)
--- NOTE | 2017-08-01 14:02 | PDOCDIS ---
Discharge Instructions CONDITION Patient Condition: Stable HOME CARE INSTRUCTIONS: Special Diet: Clear Liquids ACTIVITY: Activity Restrictions: Slowly Increase Activity FOLLOW UP/APPOINTMENTS Follow-up Plan 1. Please follow up with [employer] insurance 2. Please follow up with your primary care physician as soon as possible 3. Please see primary care physician for evaluation of gallstones. 4. Stick to a low fat diet and attempt to lose weight. KAYLYN JONES Aug 01, 2017 14:02
--- NOTE | 2017-08-01 16:31 | DS ---
Date/Time of Note Date/Time of Note DATE: 08/01/17 TIME: 16:31 Discharge Summary Admission/Discharge Info Admit Date/Time Jul 30, 2017 at 12:50 Discharge Date/Time Aug 01, 2017 at 15:10 Patient Condition: Stable Hx of Present Illness 52 yo M with no significant PMH presents to ED c/o worsening abdominal pain that radiates to the back since Monday. Patient states he was eating fish tacos when the abdominal pain began. States pain is 8/10, epigastric area radiating to back and bilateral lower quadrants, nothing makes it better, and worse with eating. Patient states he was experiencing nausea with one episode of vomiting yesterday but has since resolved. He has only been able to tolerate water over the past day prior to coming to ED. Patient states he does experiencing some shortness of breath due to the back pain and abdominal pain. Denies any fevers, chills, headache, dizziness, palpitations,constipation or diarrhea. Denies any excessive alcohol use. Hospital Course Discharge diagnoses Acute pancreatitis, resolved Abdominal pain Cholelithiasis Obesity Leukocytosis Patient is a 52-year-old male with no significant past medical history secondary to medical noncompliance and not seeing doctors who presents to [facility] for acute onset abdominal pain, found to have mild pancreatitis and was placed with supportive fluids, antibiotics and pain medication. Patient also was evaluated by GI and general surgery. GIs ordered MRCP which did not show any dilation of the common bile duct and general surgery recommended outpatient surgery for patient's cholelithiasis. After MRCP patient's abdominal pain subsided, patient was restarted on diet and patient's abdominal pain had dissipated. Patient will be discharged after getting extensive conversation regarding following up with his primary care provider and outpatient removal of his gallbladder. Home Meds No Active Prescriptions or Reported Meds Follow-up Plan 1. Please follow up with [employer] insurance 2. Please follow up with your primary care physician as soon as possible 3. Please see primary care physician for evaluation of gallstones. 4. Stick to a low fat diet and attempt to lose weight. Primary Care Provider Care Physician No Primary Time spent on discharge: > 30 minutes Pending Labs Laboratory Tests Test 08/01/17 05:39 White Blood Count 14.210^3/ul (4.8-10.8) Red Blood Count 5.0710^6/ul (4.70-6.10) Hemoglobin 15.2g/dl (14.0-18.0) Hematocrit 43.2% (42.0-52.0) Mean Corpuscular Volume 85.2fl (82.0-101.0) Mean Corpuscular Hemoglobin 30.0pg (29.0-33.0) Mean Corpuscular Hemoglobin Concent 35.2g/dl (32.0-37.0) Red Cell Distribution Width 13.5% (11.5-14.5) Platelet Count 38117^3/UL (140-415) Mean Platelet Volume 10.8fl (7.4-10.4) Neutrophils % 75.3% (39.0-77.0) Lymphocytes % 13.7% (15.0-51.0) Monocytes % 8.2% (0.0-11.0) Eosinophils % 1.9% (0.0-7.0) Basophils % 0.4% (0.0-2.0) Nucleated Red Blood Cells % 0.0/100WBC (0.0-0.0) Neutrophils # 10.710^3/ul (1.6-7.5) Lymphocytes # 2.010^3/ul (0.8-2.9) Monocytes # 1.210^3/ul (0.3-0.9) Eosinophils # 0.310^3/ul (0.0-0.5) Basophils # 0.110^3/ul (0.0-0.1) Nucleated Red Blood Cells # 0.010^3/ul (0.0-0.0) Sodium Level 134mmol/L (135-144) Potassium Level 3.9mmol/L (3.5-5.1) Chloride Level 105mmol/L (97-110) Carbon Dioxide Level 24mmol/L (21-31) Anion Gap 9 (8-16) Blood Urea Nitrogen 12mg/dl (7-20) Creatinine 0.75mg/dl (0.61-1.24) Glucose Level 94mg/dl (70-220) Calcium Level 7.9mg/dl (8.4-10.2) Phosphorus Level 2.6mg/dl (2.5-4.9) Magnesium Level 2.1mg/dl (1.7-2.5) KAYLYN JONES Aug 01, 2017 16:31
== END 2017-08-01 15:10 | disposition home or self-care (01) ==
LOC: E/R 06:45 → PP2 12:50 → INTOOBSV 12:50
PROVIDERS: ADMIT Internal Medicine; ATTEND Internal Medicine
DX: K85.90 Acute pancreatitis without necrosis or infection, unspecified (principal); K80.20 Calculus of gallbladder without cholecystitis without obstruction; M54.9 Dorsalgia, unspecified; E66.9 Obesity, unspecified; Z68.32 Body mass index [BMI] 32.0-32.9, adult; K40.90 Unilateral inguinal hernia, without obstruction or gangrene, not specified as recurrent; E88.89 Other specified metabolic disorders; Z23 Encounter for immunization
CPT/HCPCS: 36415; 74000; 74177; 74181; 76705; 80048; 80053; 80061; 81003; 83690; 83735; 84100; 85025; 90686; 93005; 96374; 96375; J0744; J2270; J2405; J7030; J7040; Q9967; Z7500; Z7502; Z7610; G0378

== ENCOUNTER 2019-06-15 06:55 | Emergency (ER) | payer SELFPAY ==
[~2019-06-15] VITALS: Ht 162.6 cm; Wt 89.5 kg
[~2019-06-15 06:55] MED LIST: CYCL10TA7 PO; NAPR-985 PO
[2019-06-15 06:58] VITALS: BP 118/74; PULSE 74; RESP 18; Ht 162.6 cm; Wt 89.5 kg
[2019-06-15] MEDS ORDERED: KETOROLAC 30 MG INJ IM STA (07:20)
[2019-06-15] MEDS ORDERED: predniSONE 20 MG TAB PO ONE (07:30)
[2019-06-15] MEDS ORDERED: CYCLOBENZAPRINE 10 MG TAB PO ONE (07:30)
[2019-06-15] MEDS ORDERED: DIPHENHYDRAMINE 50 MG INJ IM ONE (07:30)
== END 2019-06-15 08:09 | disposition home or self-care (01) ==
LOC: FTE 06:55
DX: M54.42 Lumbago with sciatica, left side (principal); M62.830 Muscle spasm of back
CPT/HCPCS: 96372; 99284; J1885